=== PATIENT | male | born 1940 | race Caucasian/White ===

== ENCOUNTER 2020-05-22 16:35 | Emergency (ER) | payer MEDICARE ==
[~2020-05-22 16:35] MED LIST: ASPIRIN CHEWABL81 MG PO; CERTAGEN1 EACH PO; FEOSOL325 MG PO; LOVAZA1 GM PO; NAPROSYN250 MG PO; NEURONTIN600 MG PO; OXY-IR 5MG5 MG PO; PRINIVIL10 MG PO; SENOKOT-S TABL1 EACH PO; ZETIA10 MG PO; ZOCOR40 MG PO
== END 2020-05-22 18:13 | disposition home or self-care (01) ==
LOC: FER 16:35
DX: S41.142A Puncture wound with foreign body of left upper arm, initial encounter (principal); W45.8XXA Other foreign body or object entering through skin, initial encounter
CPT/HCPCS: 99283